=== PATIENT | female | born 1975 | race Two or more races ===

== ENCOUNTER 2024-04-11 18:07 | Emergency (ER) | payer OTHER ==
[~2024-04-11] VITALS: Ht 170.2 cm; Wt 91.8 kg
[2024-04-11 18:44] VITALS: BP 175/77; PULSE 78; RESP 18; TEMP 97.8; O2SAT 98
--- NOTE | 2024-04-11 19:38 | ED.PDOC ---
Back pain HPI HPI Comments C/O RIGHT GROIN PAIN X TODAY. PT WAS ATTMEPTING TO KEEP A PT FROM FALLING BY PULLING ON A SHEET AND FELT A "POP" TO RIGHT GROIN. Chief Complaint: Pelvic Pain Time Seen by MD: 18:24 Reviewed Notes: Nurses Notes, Medications, Allergies Information Source: Patient Mode of Arrival: Ambulatory Past Medical History PAST MEDICAL HISTORY: Denies Surgical History: Denies all surgeries LABORATORY APPARATUS GLASS BLOWER History: No Pertinent LABORATORY APPARATUS GLASS BLOWER History Family History Family History: Reviewed,noncontributory to illness Social History Smoker: Non-Smoker Alcohol: Denies ETOH Use Drugs: Denies Drug Use Constitutional: denies: chills, diaphoresis, fatigue, fever, malaise, sweats, weakness, others EENTM: denies: blurred vision, double vision, ear bleeding, ear discharge, ear drainage, ear pain, ear ringing, eye pain, eye redness, hearing loss, mouth pain, mouth swelling, nasal discharge, nose bleeding, nose congestion, nose pain, photophobia, tearing, throat pain, throat swelling, voice changes, others Respiratory: denies: cough, hemoptysis, orthopnea, SOB at rest, shortness of breath, SOB with excertion, stridor, wheezing, others Cardiovascular: denies: chest pain, dizzy spells, diaphoresis, Dyspnea on exertion, edema, irregular heart beat, left arm pain, lightheadedness, palpitations, PND, syncope, others Gastrointestinal: denies: abdomen distended, abdominal pain, blood streaked bowels, constipated, diarrhea, dysphagia, difficulty swallowing, hematemesis, melena, nausea, poor appetite, poor fluid intake, rectal bleeding, rectal pain, vomiting, others Genitourinary: denies: abnormal vagina bleeding, burning, dyspareunia, dysuria, flank pain, frequency, hematuria, incontinence, pain, , vagina dis charge, urgency, others Neurological: denies: dizziness, fainting, headache, left sided numbness, left sided weakness, numbness, paresthesia, pre-existing deficit, right sided numbness, right sided weakness, seizure, speech problems, tingling, tremors, weakness, others Musculoskeletal: reports: others (right groin pain); denies: back pain, gout, joint pain, joint swelling, muscle pain, muscle stiffness, neck pain Integumetry: denies: bruises, change in color, change in hair/nails, dryness, laceration, lesions, lumps, rash, wounds, others Allergic/Immunocompromised: denies: Difficulty Healing, Frequent Infections, Hives, Itching, others Hematologic/Lymphatic: denies: anemia, blood clots, easy bleeding, easy bruising, swollen glands, others Endocrine: denies: excessive hunger, excessive sweating, excessive thirst, excessive urination, flushing, intolerance to cold, intolerance to heat, unexplained weight gain, unexplained weight loss, others Psychiatric: denies: anxiety, bipolar disorder, depression, hopeless, panic disorder, schizophrenia, sleepless, suicidal, others Physical Exam General Appearance: No Apparent Distress, Normal HEENT: Pharynx Normal Neck: Full Range of Motion, Non-Tender Respiratory: Lungs Clear, No Respiratory Distress, Normal Breath Sounds Cardiovascular: No Murmur, Normal Peripheral Pulses, Regular Rate/Rhythm Breast Exam: Deferred Gastrointestinal: No Organomegaly, Non Tender, No Pulsatile Mass, Normal Bowel Sounds, Soft, Suprapubic (Right side with moderate tenderness on palpation. Right groin tenderness on palpation no noted ecchymosis, trace swelling.) Genitalia: Deferred Pelvic: Deferred Rectal: Deferred Extremities: No calf tenderness, Normal capillary refill, Normal inspection, Normal range of motion, Non-tender, No pedal edema Musculoskeletal : Apperance: Normal Neurologic: Alert, edge beader II-XII nml as Tested, No Motor Deficits, Normal Affect, Normal Mood, No Sensory Deficits Cerebellar Function: Normal Reflexes: Normal Skin: Dry, Normal Color, Warm Lymphatic: No Adenopathy Was a procedure done? Was a procedure done?: No Back Pain Differential Dx Differential Diagnosis: Fracture, Musculoskeletal Pain, Strain X-Ray, Labs, Meds, VS Vital Signs Date Time Temp Pulse Resp B/P (MAP) Pulse Ox O2 Delivery O2 Flow Rate FiO2 04/11/24 18:44 78 18 98 Room Air 04/11/24 18:44 97.8 78 18 175/77 (109) 98 97.8 04/11/24 18:22 97.8 78 18 175/77 (109) 98 Current Medications Medications (Trade) Dose Ordered Sig/Danay Route Start Time Stop Time Status Last Admin Ketorolac Tromethamine (Toradol Injection) 60 mg ONCE ONCE IM 1/31/25 20:00 04/11/24 20:01 DC 04/11/24 20:07 X-Ray, Labs, Meds, VS Comment U/S{ Compressible isoechoic structure in the imaged right groin which may represent a fat containing hernia. No herniated bowel loops are evident at this time. If there is persistent clinical concern, CT may be obtained to further evaluate. Ultrasound shows possible right inguinal hernia bowel loops. Patient to follow up with HR with her employer employee health. Script ibuprofen 800 mg t.i.d. as needed for the pain. Advised to rest no heavy lifting ice the area as discussed return precautions given patient indicates understanding agrees with discharge care plan. Time of 1ST Reevaluation: 21:17 Reevaluation 1ST: Improved Patient Education/Counseling: Diagnosis, Treatment, Prognosis, Need For Follow Up Family Education/Counseling: No Family Present Departure 1 Departure Time of Disposition: 21:18 Impression: Primary Impression: Right groin hernia Disposition: 01 HOME / SELF CARE / HOMELESS Condition: Stable e-Prescriptions Ibuprofen (Ibuprofen) 800 Mg Tab 1 TAB PO TID PRN for 5 Days, #15 TAB Prov: AARTI PIERCE 04/11/24 Discharged With: Self Critical Care Note Critical Care Time?: No Stability Stability form required: AARTI Samaniego Apr 11, 2024 19:38
[2024-04-11] MEDS: KETOROLAC TROMETH 60MG/2ML VIAL IM ONE (20:07)
--- NOTE | 2024-04-11 21:11 | DVH ---
US SOFT TISSUE LIMITED CLINICAL HISTORY: right groin/suprapuic pain COMPARISON: None TECHNIQUE: Focused grayscale transabdominal ultrasound of the right groin/suprapubic area in a region of pain. Findings and impression: Compressible isoechoic structure in the imaged right groin which may represent a fat containing herni a. No herniated bowel loops are evident at this time. If there is persistent clinical concern, CT may be obtained to further evaluate.
[2024-04-11] MEDS ORDERED: IBUP-1456 PO (21:20)
== END 2024-04-11 21:38 | disposition home or self-care (01) ==
LOC: ER 18:14
DX: K40.90 Unilateral inguinal hernia, without obstruction or gangrene, not specified as recurrent (principal); W18.09XA Striking against other object with subsequent fall, initial encounter; Y93.89 Activity, other specified; Y92.69 Other specified industrial and construction area as the place of occurrence of the external cause; Y99.8 Other external cause status
CPT/HCPCS: 76856; 96372; 99285; J1885

== ENCOUNTER → 2024-10-08 | Day surgery (SDC) | payer OTHER ==
[2024-10-06 10:58] LABS: Hematocrit 40.1 % (36.0-46.0); Hemoglobin 13.5 g/dL (12.2-16.2); Mean Corpuscular Hemoglobin 29.2 pg (28.0-32.0); Mean Corpuscular Volume 86.6 fL (80.0-100.0); Nucleated Red Blood Cells % 0.1 %
[2024-10-06 11:15] LABS: Alanine Aminotransferase 14 U/L (7-40); Albumin 4.4 g/dL (3.2-4.8); Alkaline Phosphatase 85 U/L (46-116); Anion Gap 8 (5-15); BUN/Creatinine Ratio 17.3 (10.0-20.0); Blood Urea Nitrogen 13 mg/dL (9-23); Calcium 10.0 mg/dL (8.7-10.4); Carbon Dioxide 27 mmol/L (20-31); Chloride 103 mmol/L (98-107); Glucose 92 mg/dL (74-106); Potassium 4.5 mmol/L (3.5-5.1); Sodium 138 mmol/L (136-145); Total Protein 6.9 g/dL (5.7-8.2)
[2024-10-06 11:16] LABS: Bilirubin, Total 0.3 mg/dL (0.2-1.0)
[2024-10-06 11:18] LABS: INR 0.94 (0.9-1.15); Partial Thromboplastin Time 30.1 SEC (24.5-34.5); Prothrombin Time 10.0 sec (9.3-11.8)
[2024-10-06 11:26] LABS: Urine Protein, UAD Negative (Negative)
[~2024-10-08] VITALS: Ht 170.2 cm; Wt 89.8 kg
[~2024-10-08] MED LIST: ACE3T PO; ACETAMINOPHEN IV 1000 MG/100ML (10MG/ML) IV PRN; HYDROmorphone HCL 2 MG/ML VL/or syr IV PRN; HYDROmorphone HCL 2 MG/ML VL/or syr ONE; MEPERIDINE HCL (25 MG/ML) 1ML VIAL IV PRN; METO25TA93 PO; ONDANSETRON HCL 4 MG/2 ML VIAL ONE; PROPOFOL 10 MG/ML 20 ML IV ONE; ROCURONIUM 10MG/ML 10ML VIAL IV ONE; SUGAMMADEX 200mg/2ml Vial (100MG/ML) IV ONE; fentaNYL CITRATE 100 MCG/2 ML VL ONE
[2024-10-08] MEDS: SUCCINYLCHOLINE CHLORIDE 20 MG/ML 10ML VIAL IV ONE (09:59)
[2024-10-08] MEDS: ceFAZolin 2 GM/D5W50ml 50 ML IV ONE (10:45)
[2024-10-08] MEDS: LIDOCAINE W/ EPINEPHRINE 1% 20ML VIAL ONE (11:20)
[2024-10-08] MEDS: BUPIVACAINE HCL 0.25% P/F 10 ML VIAL ONE (11:20)
[2024-10-08 11:27] VITALS: PULSE 91; RESP 18; TEMP 97.5; O2SAT 95
[2024-10-08 11:35] VITALS: PULSE 79; RESP 10; O2SAT 95
--- NOTE | 2024-10-08 11:39 | DVHOP ---
DATE OF SURGERY: 10/08/2024 PREOPERATIVE DIAGNOSIS: Right recurrent inguinal hernia. POSTOPERATIVE DIAGNOSIS: Right recurrent inguinal hernia. SURGEON: Jesu Mac MD IT HELP DESK MANAGER: Oracio Garcia NP ANESTHESIA: General endotracheal. ANESTHESIOLOGIST: Dr. Ramos PROCEDURE: Repair of a recurrent inguinal hernia. DESCRIPTION OF PROCEDURE: Under general anesthesia with the patient's skin prepped and draped, the patient's skin infiltrated 0.25% Marcaine with epinephrine and the incision was made over the visible palpable bulge that the patient had preoperatively identified. The patient's subcutaneous tissues were divided. The fat was divided onto the fibers of the external oblique aponeurosis. The patient's anatomy is distorted secondary to an abdominoplasty scar. Multiple sutures were removed from what appears to be a previous inguinal hernia repair and the floor of the inguinal canal was repaired using non-absorbable sutures. The hernia contents consisted of fat and sutures that were submitted for histopathologic confirmation. Subcutaneous tissues were irrigated and approximated using 2-0 Monocryl sutures, Dermabond, glue, and Steri-Strips used approximation of skin. The patient remained stable throughout the procedure, left the operating room following an accurate needle and sponge counts. The patient's , Mr. Jorge A Martinez, was thoroughly informed in the waiting room. Jesu Mac MD PF/HERNÁN/PAUOL TID: [id number] RECEIPT: [id number]
[2024-10-08 11:42] VITALS: PULSE 10; RESP 71; O2SAT 95
[2024-10-08 12:08] VITALS: PULSE 65; RESP 10; O2SAT 95
[2024-10-08 12:50] VITALS: BP 146/71; PULSE 86; RESP 16; O2SAT 98
[2024-10-08] MEDS: METOCLOPRAMIDE HCL 5MG/ml INJ 2ml VIAL IV ONE (12:57)
[2024-10-08] MEDS: ONDANSETRON HCL 4 MG/2 ML VIAL IV ONE (12:57)
== END | disposition home or self-care (01) ==
LOC: SUR 08:14
PROVIDERS: ATTEND Surgery
DX: K40.91 Unilateral inguinal hernia, without obstruction or gangrene, recurrent (principal); I10 Essential (primary) hypertension; E66.01 Morbid (severe) obesity due to excess calories; Z98.891 History of uterine scar from previous surgery; Z98.51 Tubal ligation status; Z98.890 Other specified postprocedural states; Z88.0 Allergy status to penicillin; Z88.8 Allergy status to other drugs, medicaments and biological substances; Z79.899 Other long term (current) drug therapy
CPT/HCPCS: 36415; 49520; 80053; 81001; 84702; 85025; 85610; 85730; 86850; 86900; 86901; 88302; J0330; J0690; J1100; J1171; J2405; J2704; J3010; J3490